=== PATIENT | female | born 1940 | race Caucasian/White ===

== ENCOUNTER 2016-07-01 11:52 | Day surgery (SDC) | payer OTHER ==
[~2016-07-01] VITALS: Ht 149.9 cm; Wt 51.2 kg
[2016-07-01 13:11] VITALS: Ht 149.9 cm; Wt 51.2 kg
[2016-07-01] MEDS ORDERED: [UNRECOGNIZED DRUG - OTHER] (13:11)
[2016-07-01] MEDS ORDERED: MIRALAX (13:11)
[2016-07-01] MEDS ORDERED: [UNRECOGNIZED DRUG - OTHER] (13:11)
--- NOTE | 2016-07-01 14:35 | RADRPT ---
PROCEDURE: XR Chest 1 View. CLINICAL INDICATION: Shortness of breath, heart failure TECHNIQUE: AP view of the chest were obtained. COMPARISON: None. FINDINGS: The heart size is within normal limits. Calcified atherosclerosis is noted in the aorta. Right-side d dual chamber pacemaker has its leads over the heart and appears stable. Lungs are hyperexpanded. No consolidations are identified. No pneumothorax is seen. Osseous structures are osteopenic, but appear grossly intact. IMPRESSION: Calcified atherosclerosis in the aorta. Hyperexpanded, clear lungs. RPTAT: AA .Phil West MD, MD Date Time Electronically viewed and signed by .Phil West MD, MD on 07/01/2016 14:35 .P/
[2016-07-01] MEDS ORDERED: PROPOFOL 20 ML ONE (14:42)
[2016-07-01] MEDS ORDERED: MIDAZOLAM 1 MG/ML 2 ML INJ ONE (14:42)
[2016-07-01] MEDS ORDERED: ESMOLOL 10 ML ONE (14:43)
[2016-07-01] MEDS ORDERED: FENTAnyl 50 MCG/ML VIAL ONE (14:43)
[2016-07-01 14:46] VITALS: BP 176/75; PULSE 103; RESP 16
[2016-07-01 15:50] VITALS: BP 154/67; PULSE 88; RESP 20
--- NOTE | 2016-07-02 10:05 | GILP ---
DATE OF PROCEDURE: 07/01/2016 NAME OF PROCEDURE: Colonoscopy with multiple biopsies and localization tattoo. SURGEON: Rika Mirza MD PREOPERATIVE DIAGNOSIS(ES) POSTOPERATIVE DIAGNOSIS(ES) BRIEF HISTORY AND INDICATIONS: The patient is being reevaluate. Apparently she was evaluated in [facility] and found to have what she and her family described as a large polyp that could not be removed for which surgery was recommended. The patient and her family decided to come back to the [facility] to have this evaluated. No hard copy reports are available. No specifics, size, location of t he so called polyp are available. PREMEDICATION: Monitored anesthesia care by anesthesiologist. INSTRUMENT USED: Olympus colonoscope. PREPARATION: TECHNIQUE: After informed consent, with the patient/relatives understanding the procedure, its indic ations potential risks and complications, including but not limited to: allergic reaction, bleeding, perforation, infection, missed lesions and after all pertinent questions were answered to the patie nt's satisfaction, the patient/relatives signed the witnessed informed consent. Following this, premedication was administered slowly IV push by under careful cardiovascular and re spiratory monitoring with pulse oximetry, automatic blood pressure and sheetmetal trades worker. Once the sedativ e effect was achieved, the patient was placed in the left lateral decubitus position, digital rectal examination was performed. The colonoscope was then introduced and advanced under visual control th roughout all segments of the colon including: the rectum, sigmoid, descending colon, splenic flexure , transverse colon, hepatic flexure, ascending colon and finally reaching the cecum which was clearl y identified by transillumination, finger indentation and the ileocecal valve. Careful examination o f the mucosa of the lower gastrointestinal tract both on insertion as well as withdrawal of the inst rument disclosed the following findings: Rectal Examination: On deep palpation with the index finger, I can feel what appears to be a mass ap proximately 5 to 6 cm from the anal verge. Following this, the Olympus colonoscope was introduced. A very large, more than 6 to 8 cm and almos t circumferential mass was noted, has a clearly malignant appearance, is hard to the touch, and fria ble. The area was bypassed. The remainder of colonic mucosa unremarkable. The ileocecal valve was clearly identified. The instrument was withdrawn. On withdrawal of the instrument, no additional abnormalities were noted. Multiple biopsies were obtained of the mass and localization tattoo was a pplied to the distal margin of the mass which endoscopically is localized at approximately 5 cm. Mo derate-sized internal hemorrhoids are present. The instrument was then withdrawn, the patient tolerated the procedure well and was transferred out of the Endoscopy Suite awake and in good condition to continue recovery under observation. IMPRESSION 1. Large, more than 6 cm semi-circumferential mass, likely malignant in the rectum, distal margin o f approximately 5 cm from the anal verge. Multiple biopsies obtained. Localization tattoo applied to the distal margin. 2. Moderate-sized internal hemorrhoids. PLAN: The patient should be evaluated for surgical and oncological. Radiation therapy prior to jaxon elizabeth appears to be the most advantageous approach. She should also have a CT abdomen and pelvis to assess resectability of this lesion and the possibility of metastatic disease. The patient's family will be informed of the findings. Dictated By: RIKA GONZALEZ Conf#: [id number] DID#: [id number]
--- NOTE | 2016-07-03 09:24 | RADRPT ---
Vent Rate: 95 bpm RR Interval: 0 msec MO Interval: 96 msec QRS Duration: 130 msec QT Interval: 390 msec QTC Interval: 490 msec P-R-T [place]: 97 - -54 - 102 degrees Electronic ventricular pacemaker Electronically Signed By: Todd Rayo [id number]
== END 2016-07-01 16:28 | disposition home or self-care (01) ==
LOC: GIL 11:52
PROVIDERS: ATTEND Internal Medicine Gastroenterology
DX: C20 Malignant neoplasm of rectum (principal); I51.9 Heart disease, unspecified; Z95.0 Presence of cardiac pacemaker
CPT/HCPCS: 45380; 71010; 88305; 93005; J2250; J3010; Z7610

== ENCOUNTER 2016-07-11 10:16 | Inpatient (IN) | payer SELFPAY ==
[~2016-07-11] VITALS: Ht 134.6 cm; Wt 52.0 kg
[~2016-07-11 10:16] MED LIST: MIRALAX; [UNRECOGNIZED DRUG - OTHER]; [UNRECOGNIZED DRUG - OTHER]
[2016-07-11] MEDS ORDERED: SOD CHLORIDE 0.9% 1,000 ML IV STA (12:03)
--- NOTE | 2016-07-11 12:06 | ERA ---
ER Documentation Chief Complaint Date/Time DATE: 07/11/16 TIME: 12:04 Chief Complaint Complains of rectal bleed, and dizziness with hx of Colon CA HPI This is a 76-year-old female with a history of 3 months of bright red blood per rectum. The patient was recently seen and worked up in [place] and was diagnosed with colorectal cancer roughly 2 weeks ago. The patient states that she has had bright red blood per rectum every time she has a bowel movement and for the past 3 days when she stands up bright red blood will come out without stool. She is also complains of feeling dizzy. No syncope no chest pain shortness of breath headache no focal neurological complaints. ROS All systems reviewed and are negative except as per history of present illness. Medications Home Meds Reported Medications Polyethylene Glycol* (Miralax*) 17 Gm Powd.pack, 17 GM PO DAILY, #30 PACKET 07/11/16 Diltiazem Hcl* (Cardizem CD*) 120 Mg Cap.sr.24h, 120 MG PO DAILY, #30 CAP 07/11/16 Discontinued Reported Medications [Ranisen] No Conflict Check 07/01/16 [Angiotrofin] No Conflict Check 07/01/16 [Miralax] No Conflict Check 07/01/16 Allergies Allergies: Coded Allergies: No Known Allergy (Unverified , 07/11/16) PMhx/Soc History of Surgery: Yes (PACER INSERTION) Anesthesia Reaction: No Hx Neurological Disorder: No Hx Respiratory Disorders: No Hx Cardiac Disorders: Yes (HEART DISEASE) Hx Psychiatric Problems: No Hx Miscellaneous Medical Probl: No Hx Alcohol Use: No Hx Substance Use: No Hx Tobacco Use: No FmHx Family History: No coronary disease Physical Exam Vitals Vital Signs Date Time Temp Pulse Resp B/P Pulse Ox O2 Delivery O2 Flow Rate FiO2 07/11/16 16:48 98.1 62 16 132/52 99 Room Air 07/11/16 14:26 97.6 87 18 172/82 100 Room Air 2.0 07/11/16 12:15 96.7 69 16 189/90 100 Nasal Cannula 2.0 07/11/16 10:27 98.3 61 20 156/70 98 Physical Exam Const: Well-developed, well-nourished Head: Atraumatic, normocephalic Eyes: Normal Conjunctiva, PERRLA, EOMI, normal sclera, no nystagmus ENT: Normal External Ears, Nose and Mouth, moist mucus membranes. Neck: Full range of motion. No meningismus, no lymphadenopathy. Resp: Clear to auscultation bilaterally, no wheezing, rhonchi, rales Cardio: Regular rate and rhythm, no murmurs, S1 S2 present Abd: Soft, mild left lower quadrant tenderness, non distended. Normal bowel sounds, no guarding or rebound, no pulsitile abdominal masses or bruits Skin: No petechiae or rashes, no ecchymosis , no maculopapular rash Back: No midline or flank tenderness Ext: No cyanosis, or edema, FROM x 4, normal inspection, neurovascularly intact x 4 Neur: Awake and alert, STR 5/5 x 4, sensation intact x 4, no focal findings, cerebellum intact Psych: Normal Mood and Affect Result Diagram: 07/11/16 1155 07/11/16 1155 Results 24 hrs Laboratory Tests Test 07/11/16 11:55 Activated Partial Thromboplast Time 29.2Sec Alanine Aminotransferase (ALT/SGPT) 15IU/L Albumin 4.2g/dl Albumin/Globulin Ratio 1.07 Alkaline Phosphatase 95IU/L Anion Gap 19 Aspartate Amino Transf (AST/SGOT) 31IU/L Basophils # 0.010^3/ul Basophils % 0.4% Blood Urea Nitrogen 20mg/dl Calcium Level 9.1mg/dl Carbon Dioxide Level 25mmol/L Chloride Level 103mmol/L Creatinine 1.04mg/dl Direct Bilirubin 0.00mg/dl Eosinophils # 0.210^3/ul Eosinophils % 2.6% Globulin 3.90g/dl Glucose Level 135mg/dl Hematocrit 36.6% Hemoglobin 11.7g/dl INR International Normalized Ratio 0.99 Indirect Bilirubin 0.0mg/dl Lymphocytes # 2.010^3/ul Lymphocytes % 28.1% Mean Corpuscular Hemoglobin 27.9pg Mean Corpuscular Hemoglobin Concent 32.0g/dl Mean Corpuscular Volume 87.4fl Mean Platelet Volume 9.7fl Monocytes # 0.510^3/ul Monocytes % 6.9% Neutrophils # 4.310^3/ul Neutrophils % 61.6% Nucleated Red Blood Cells # 0.010^3/ul Nucleated Red Blood Cells % 0.0/100WBC Platelet Count 30516^3/UL Potassium Level 3.8mmol/L Prothrombin Time 13.1Sec Prothrombin Time Ratio 1.0 Red Blood Count 4.1910^6/ul Red Cell Distribution Width 13.4% Sodium Level 143mmol/L Total Bilirubin 0.0mg/dl Total Protein 8.1g/dl White Blood Count 6.910^3/ul Current Medications Medications (Trade) Dose Ordered Sig/Mathew Route PRN Reason Start Time Stop Time Status Last Admin Dose Admin Sodium Chloride (NS) 1,000 ml @ 1,000 mls/hr Q1H STAT IV 07/11/16 12:03 07/11/16 13:02 DC 07/11/16 12:22 IV Flush 10 ml 10 ml STK-MED ONCE .ROUTE 07/11/16 16:01 07/11/16 16:02 DC 07/11/16 16:01 Sodium Chloride (NS) 100 ml @ ud STK-MED ONCE .ROUTE 07/11/16 16:01 07/11/16 16:02 DC 07/11/16 16:01 Iodixanol (Visipaque Locm) 100 ml STK-MED ONCE .ROUTE 07/11/16 16:01 07/11/16 16:02 DC 07/11/16 16:01 Procedures/MDM PROCEDURE: CT of the abdomen and pelvis CLINICAL INDICATION: Abdominal pain. History of recently diagnosed colorectal cancer. Rectal bleeding. TECHNIQUE: The study was performed utilizing a [employer] 64-slice multidetector CT scanner. Direct spiral axial sections were obtained through the abdomen and pelvis with intravenous contrast. After administration of 90 cc of Visipaque 320, postcontrast images were obtained. Coronal and sagittal reformatted images were performed. The CTDI vol is 7.06 mGy and the DLP is 369.95 mGy-cm. The images were reviewed on a PACS workstation. COMPARISON: No prior studies are available for comparison. FINDINGS: CT abdomen: 8 mm nodule in the subpleural margin of the lateral aspect of the right lower lobe is seen with a calcification. A 2 mm calcified granuloma in the right lower lobe is seen. lung bases are clear. The heart is not enlarged. No pleural or pericardial effusion is seen. The liver is normal in size and contour. Focal fat is seen adjacent to the falciform ligament. No focal liver lesions or intrahepatic biliary dilatation is seen. The gallbladder is normal. No common bile duct dilatation is seen. The spleen, pancreas, and adrenal glands are unremarkable in appearance. The kidneys are normal in size and contour enhance normally. No evidence of hydronephrosis or nephrolithiasis is seen. A simple cyst is seen in the mid right kidney measuring approximately 4 cm in size. A small hiatal hernia seen. The stomach is remainder of the unremarkable. The large bowel is stool-filled. Irregular wall thickening in the rectum is seen with luminal narrowing. The small and remainder of the large bowel are otherwise unremarkable in course and caliber. No inflammatory changes in the periappendiceal region is seen. No enlarged lymph nodes or fluid collections are seen. The aorta is normal in caliber . Atherosclerotic vascular disease is seen. CT pelvis: No pelvic mass, adenopathy, or focal fluid collection is seen. There is no free fluid. The urinary bladder is normal. The uterus is absent. No osseous lesions are seen. Degenerative spondylosis of the lumbar spine is seen. IMPRESSION: 1. Irregular bowel wall thickening in the rectum with luminal narrowing which may be consistent with the patients clinical history of a colorectal cancer. Correlation with recent colonoscopy and biopsy may be of value as clinically warranted. 2. Stool filled large bowel. 3. Small hiatal hernia. 4. 8 mm right lower lobe nodule which may represent a calcified granuloma. A calcification. In addition, 2 mm calcified granuloma in the right lower lobe. Recommendations Solid nodules Nodule size: = 4 mm - low risk patients: no follow-up needed - high risk patients: follow-up at 12 months and if no change, no further imaging needed Nodule size: 4-6 mm - low risk patients: follow-up at 12 months and if no change, no further imaging needed - high risk patients: initial follow-up CT at 6-12 months and then at 18-24 months if no change Nodule size: >6-8 mm - low risk patients: initial follow-up CT at 6-12 months and then at 18-24 months if no change - high risk patients: initial follow-up CT at 3-6 months and then at 9-12 and 24 months if no change Nodule size: >8 mm - either low or high risk patients - follow-up CTs at around 3, 9, and 24 months - dynamic contrast enhanced CT, PET, and/or biopsy Note: newly detected indeterminate nodule in persons 35 years of age or older. - low risk patients: minimal or absent history of smoking and or other known risk factors - high risk patients: history of smoking or of other known risk factors (e.g. first degree relative with lung cancer, or exposure to asbestos, radon, uranium) if a nodule up to 8 mm is partly solid or is ground glass further follow up is required after 24 months to exclude possible slow growing adenocarcinoma (EVELIA) RPTAT: HPNM Brandan Pillai Physician Date Time Electronically viewed and signed by Brandan Pillai Physician on 07/11/2016 16 :38 / CC: MARY ANNE MENDOZA DO Patient be admitted to the hospital for rectal bleeding due to rectal cancer. I spoke with Dr. smith off he knows this patient has he scoped her as an outpatient recently. No evidence of severe anemia. Lavagate chemo and radiation first to shrink down the mass before surgery is needed. However did consul general surgery Departure Diagnosis: Primary Impression: Rectal hemorrhage Condition: Stable MARY ANNE MENDOZA DO Jul 11, 2016 12:06
[2016-07-11 12:11] LABS: BASOPHILS % 0.4 % (0.0-2.0); EOSINOPHILS # 0.2 10^3/ul (0.0-0.5); EOSINOPHILS % 2.6 % (0.0-7.0); HEMATOCRIT 36.6 % (37.0-47.0); HEMOGLOBIN 11.7 g/dl (12.0-16.0); LYMPHOCYTES % 28.1 % (15.0-51.0); MEAN CORPUSCULAR HEMOGLOBIN 27.9 pg (29.0-33.0); MEAN CORPUSCULAR VOLUME 87.4 fl (82.0-101.0); MEAN PLATELET VOLUME 9.7 fl (7.4-10.4); MONOCYTE # 0.5 10^3/ul (0.3-0.9); MONOCYTES % 6.9 % (0.0-11.0); NEUTROPHIL # 4.3 10^3/ul (1.6-7.5); NEUTROPHILS % 61.6 % (39.0-77.0); PLATELET COUNT 201 10^3/UL (140-415); RED BLOOD COUNT 4.19 10^6/ul (4.20-5.40); RED CELL DISTRIBUTION WIDTH 13.4 % (11.5-14.5); WHITE BLOOD COUNT 6.9 10^3/ul (4.8-10.8)
[2016-07-11] MEDS ORDERED: DILT120C77 PO (12:55)
[2016-07-11] MEDS ORDERED: POLY17PO6 PO (12:55)
[2016-07-11 13:01] LABS: INR 0.99; PROTIME 13.1 Sec (12.2-14.2)
[2016-07-11 13:02] LABS: PARTIAL THROMBOPLASTIN TIME 29.2 Sec (25.0-35.0)
[2016-07-11 13:29] LABS: ALBUMIN 4.2 g/dl (3.3-4.9); POTASSIUM 3.8 mmol/L (3.5-5.1)
[2016-07-11 13:31] LABS: CREATININE 1.04 mg/dl (0.44-1.00)
[2016-07-11 13:32] LABS: ALBUMIN/GLOBULIN RATIO 1.07; CALCIUM 9.1 mg/dl (8.4-10.2); TOTAL PROTEIN 8.1 g/dl (6.1-8.1)
[2016-07-11] MEDS ORDERED: IODIXANOL LOCM 100 ML BTL ONE (16:01)
[2016-07-11] MEDS ORDERED: SOD CHLORIDE 0.9% 100 ML ONE (16:01)
--- NOTE | 2016-07-11 16:39 | RADRPT ---
PROCEDURE: CT of the abdomen and pelvis CLINICAL INDICATION: Abdominal pain. History of recently diagnosed colorectal cancer. Rectal blee ding. TECHNIQUE: The study was performed utilizing a GE lightspeed 64-slice multidetector CT scanner. Dir ect spiral axial sections were obtained through the abdomen and pelvis with intravenous contrast. Af ter administration of 90 cc of Visipaque 320, postcontrast images were obtained. Coronal and sagitt al reformatted images were performed. The CTDI vol is 7.06 mGy and the DLP is 369.95 mGy-cm. The im ages were reviewed on a PACS workstation. COMPARISON: No prior studies are available for comparison. FINDINGS: CT abdomen: 8 mm nodule in the subpleural margin of the lateral aspect of the right lower lobe is seen with a calcification. A 2 mm calcified granuloma in the right lower lobe is seen. lung bases are clear. The heart is not enlarged. No pleural or pericardial effusion is seen. The liver is normal in size and contour. Focal fat is seen adjacent to the falciform ligament. No fo tyrone liver lesions or intrahepatic biliary dilatation is seen. The gallbladder is normal. No common b ile duct dilatation is seen. The spleen, pancreas, and adrenal glands are unremarkable in appearanc e. The kidneys are normal in size and contour enhance normally. No evidence of hydronephrosis or ne phrolithiasis is seen. A simple cyst is seen in the mid right kidney measuring approximately 4 cm in size. A small hiatal hernia seen. The stomach is remainder of the unremarkable. The large bowel is stool -filled. Irregular wall thickening in the rectum is seen with luminal narrowing. The small and rem ainder of the large bowel are otherwise unremarkable in course and caliber. No inflammatory changes in the periappendiceal region is seen. No enlarged lymph nodes or fluid collections are seen. The a mrakie is normal in caliber . Atherosclerotic vascular disease is seen. CT pelvis: No pelvic mass, adenopathy, or focal fluid collection is seen. There is no free fluid. The urinary bladder is normal. The uterus is absent. No osseous lesions are seen. Degenerative spon dylosis of the lumbar spine is seen. IMPRESSION: 1. Irregular bowel wall thickening in the rectum with luminal narrowing which may be consistent wit h the patients clinical history of a colorectal cancer. Correlation with recent colonoscopy and biop sy may be of value as clinically warranted. 2. Stool filled large bowel. 3. Small hiatal hernia. 4. 8 mm right lower lobe nodule which may represent a calcified granuloma. A calcification. In ad dition, 2 mm calcified granuloma in the right lower lobe. Recommendations Solid nodules Nodule size: = 4 mm - low risk patients: no follow-up needed - high risk patients: follow-up at 12 months and if no change, no further imaging needed Nodule size: 4-6 mm - low risk patients: follow-up at 12 months and if no change, no further imaging needed - high risk patients: initial follow-up CT at 6-12 months and then at 18-24 months if no change Nodule size: >6-8 mm - low risk patients: initial follow-up CT at 6-12 months and then at 18-24 months if no change - high risk patients: initial follow-up CT at 3-6 months and then at 9-12 and 24 months if no change Nodule size: >8 mm - either low or high risk patients - follow-up CTs at around 3, 9, and 24 months - dynamic contrast enhanced CT, PET, and/or biopsy Note: newly detected indeterminate nodule in persons 35 years of age or older. - low risk patients: minimal or absent history of smoking and or other known risk factors - high risk patients: history of smoking or of other known risk factors (e.g. first degree relative with lung cancer, or exposure to asbestos, radon, uranium) if a nodule up to 8 mm is partly solid or is ground glass further follow up is required after 24 mon ths to exclude possible slow growing adenocarcinoma (EVELIA) RPTAT: HPNM Physician Hillary Date Time Electronically viewed and signed by Brandan Pillai Physician on 07/11/2016 16:38 /
[2016-07-11 16:48] VITALS: TEMP 98.1
[2016-07-11] MEDS ORDERED: SOD CHLORIDE 0.9% 1,000 ML IV SCH (18:18)
--- NOTE | 2016-07-11 18:21 | HP ---
Date/Time of Note Date/Time of Note DATE: 07/11/16 TIME: 18:12 Assessment/Plan VTE Prophylaxis VTE Prophylaxis Intervention: contraindicated VTE Contraindication Reason: bleeding Assessment/Plan Assessment/Plan 76 yo female with a past medical history of CAD s/p pacemaker, essential hypertension, who presents with bright red blood per rectum for the last three days. 1. BRBPR - will admit the patient to telemetry, consult Dr. Mirza, Surgery, Hem /onc, radiation/onc for further evaluation, type and cross, serial h/h, monitor acute changes 2. Colorectal CA - newly diagnosed - see #1 - adenocarcinoma - moderately differentiated as per pathology 3. Acute Renal Failure - 2/2 to ATN from blood loss - will monitor acute changes , NPO, IVF 4. Anemia - acute blood loss - could be chronic - will check serial H/H - monitor acute changes 5. CAD s/p pacemaker - consult cardiology for clearance, check echo 6. Essential hypertension - prn hydralazine for sbp > 160 7. GI ppx - protonix gtt 8. DVT ppx - scds answered all of her questions. as per clinical course. this history and physical took greater then 45 minutes to complete HPI/ROS Admit Date/Time Admit Date/Time 07/11/2016, 6:13 pm Hx of Present Illness 76 yo female with a past medical history of CAD s/p pacemaker, essential hypertension, who presents with bright red blood per rectum for the last three days. She has been bleeding at all times, small amounts. When she stands is when she notices the most blood loss. She has been having dizziness, chest pain , shortness of breath, and malaise. Denies any nausea, vomiting, diarrhea, constipation, fevers/chills, loss of consciousness, headaches, urinary irregularities or other constitutional symptoms. Patient had recently gone to [place] 3 months ago where the diagnosis of colorectal cancer was made. She saw Dr. Mirza last week to confirm the diagnosis via colonoscopy. Colonoscopy: IMPRESSION 1. Large, more than 6 cm semi-circumferential mass, likely malignant in the rectum, distal margin of approximately 5 cm from the anal verge. Multiple biopsies obtained. Localization tattoo applied to the distal margin. 2. Moderate-sized internal hemorrhoids. PLAN: The patient should be evaluated for surgical and oncological. Radiation therapy prior to surgery appears to be the most advantageous approach. She should also have a CT abdomen and pelvis to assess resectability of this lesion and the possibility of metastatic disease. The patient's family will be informed of the findings. ROS 14 point review of systems completed, please refer to HPI for any positive findings PMH/Family/Social Past Medical History Medical History: coronary artery disease, hypertension Past Surgical History s/p pacemaker, hysterectomy Family History Significant Family History: hypertension Social History Alcohol Use: none Smoking Status: Never smoker Drug Use: none Exam/Review of Systems Vital Signs Vitals Vital Signs Date Time Temp Pulse Resp B/P Pulse Ox O2 Delivery O2 Flow Rate FiO2 07/11/16 16:48 98.1 62 16 132/52 99 Room Air 07/11/16 14:26 2.0 Exam Exam Gen Ana Luisa: mild distress 2/2 to fatigue, AAOx4 HEENT: NC/AT, PERRLA, EOMI, no pharyngeal erythema, no tonsillar exudates, no lymphadenopathy, no JVD, no carotid bruits NECK: supple, no thyromegaly THORAX: symmetrical, Left upper pacemaker noted CV: S1S2, RRR, II/ systolic murmur best heard over tricuspid area Lungs: CTAB no W/C/R/R Abd: soft, NT/ND, +BS, no rebound, no guarding, neg HSM EXT: trace lower extremity bilateral edema, no ecchymosis, no clubbing, FROM Neuro: CN II-XII grossly intact, no focal deficits Psych: good mentation, alert and oriented, good mood and affect Skin: decreased skin turgor Labs Result Diagram: 07/11/16 1155 07/11/[address] abd/pelvis IMPRESSION: 1. Irregular bowel wall thickening in the rectum with luminal narrowing which may be consistent with the patients clinical history of a colorectal cancer. Correlation with recent colonoscopy and biopsy may be of value as clinically warranted. 2. Stool filled large bowel. 3. Small hiatal hernia. 4. 8 mm right lower lobe nodule which may represent a calcified granuloma. A calcification. In addition, 2 mm calcified granuloma in the right lower lobe. Recommendations Solid nodules Nodule size: = 4 mm - low risk patients: no follow-up needed - high risk patients: follow-up at 12 months and if no change, no further imaging needed Nodule size: 4-6 mm - low risk patients: follow-up at 12 months and if no change, no further imaging needed - high risk patients: initial follow-up CT at 6-12 months and then at 18-24 months if no change Nodule size: >6-8 mm - low risk patients: initial follow-up CT at 6-12 months and then at 18-24 months if no change - high risk patients: initial follow-up CT at 3-6 months and then at 9-12 and 24 months if no change Nodule size: >8 mm - either low or high risk patients - follow-up CTs at around 3, 9, and 24 months - dynamic contrast enhanced CT, PET, and/or biopsy Note: newly detected indeterminate nodule in persons 35 years of age or older. - low risk patients: minimal or absent history of smoking and or other known risk factors - high risk patients: history of smoking or of other known risk factors (e.g. first degree relative with lung cancer, or exposure to asbestos, radon, uranium) if a nodule up to 8 mm is partly solid or is ground glass further follow up is required after 24 months to exclude possible slow growing adenocarcinoma (EVELIA) RYLEY COELLO MD Jul 11, 2016 18:21
[2016-07-11] MEDS ORDERED: ONDANSETRON 4 MG INJ IV PRN ×2 (18:30)
[2016-07-11] MEDS ORDERED: ACETAMINOPHEN 325 MG TAB PO PRN (18:30)
[2016-07-11] MEDS ORDERED: NACL 0.9% 3 ML SYG IV SCH (18:30)
[2016-07-11] MEDS ORDERED: NITROGLYCERIN (SL) 0.4 MG TAB SL PRN (18:30)
[2016-07-11] MEDS ORDERED: LORAZEPAM 2 MG INJ IV PRN (18:30)
[2016-07-11] MEDS ORDERED: hydrALAzine 20 MG INJ IV PRN (18:30)
[2016-07-11] MEDS ORDERED: morphine 2 MG INJ IV PRN (18:30)
--- NOTE | 2016-07-11 18:34 | CONS ---
Date/Time of Note Date/Time of Note DATE: 07/11/16 TIME: 18:30 Assessment/Plan Assessment/Plan Additional Assessment/Plan Lightheadedness History of pacemaker Acute blood loss anemia Colorectal cancer with GI bleeding -Patient with symptoms of fatigue, lightheadedness with standing and shortness of breath progressing over the past 2 weeks as her rectal bleeding has worsened. Prior to her GI bleeding issues, she denied symptoms of exertional shortness of breath or dizziness. She did have a pacemaker placed in 2013 in [place] secondary to bradycardia. Etiology of her symptoms is most likely secondary to her GI bleed. She is undergoing GI evaluation. Would obtain echocardiogram to evaluate LV function. Transfuse as necessary as per the primary team. Blood pressure initially was elevated but currently has improved. Would hold any antiplatelet therapies. Consultation Date/Type/Reason Admit Date/Time 07/11/2016, 6:13 pm Type of Consultation: cv Reason for Consultation Lightheadedness and history of pacemaker Hx of Present Illness This is a 76-year-old female with recent diagnosis of colorectal cancer who presents with rectal bleeding and lightheadedness. Patient undergoing evaluation for possible surgical intervention. Patient with more frequent bleeding especially with movements. Patient over the past week developed symptoms of lightheadedness with standing up. Symptoms usually improve after a few seconds. With exertion she complains of fatigue and shortness of breath progressing over the past few weeks. She does admit to increased blood loss per rectum. She denies any exertional chest pain. She denies any fevers or chills. Prior to this episode of bleeding, she denied exertional shortness of breath. She does have a history of a pacemaker placed in [place] in 2013 secondary to bradycardia. 12 point review of symptoms was performed with all pertinent positives and negatives mentioned above and all else is negative Past Medical History Bradycardia status post pacemaker Colorectal cancer Medical History: hypertension Past Surgical History Past Surgical Hx: other (Pacemaker, hysterectomy) Family History Significant Family History: no pertinent family hx Social History Alcohol Use: none Smoking Status: Never smoker Drug Use: none Exam/Review of Systems Vital Signs Vitals Vital Signs Date Time Temp Pulse Resp B/P Pulse Ox O2 Delivery O2 Flow Rate FiO2 07/11/16 16:48 98.1 62 16 132/52 99 Room Air 07/11/16 14:26 2.0 Exam No apparent distress Constitutional: alert, frail, oriented Head: normocephalic Neck: supple Respiratory: clear to auscultation, normal air movement Cardiovascular: other (S1-S2 heard), regular rate and rhythm Gastrointestinal: bowel sounds, non-tender, other (No guarding), soft Extremities: other (No edema) Results Result Diagram: 07/11/16 1155 07/11/16 1155 Results 24 hrs Laboratory Tests Test 07/11/16 11:55 Activated Partial Thromboplast Time 29.2 Alanine Aminotransferase (ALT/SGPT) 15 Albumin 4.2 Albumin/Globulin Ratio 1.07 Alkaline Phosphatase 95 Anion Gap 19 H Aspartate Amino Transf (AST/SGOT) 31 Basophils # 0.0 Basophils % 0.4 Blood Urea Nitrogen 20 Calcium Level 9.1 Carbon Dioxide Level 25 Chloride Level 103 Creatinine 1.04 H Direct Bilirubin 0.00 Eosinophils # 0.2 Eosinophils % 2.6 Globulin 3.90 H Glucose Level 135 Hematocrit 36.6 L Hemoglobin 11.7 L INR International Normalized Ratio 0.99 Indirect Bilirubin 0.0 Lymphocytes # 2.0 Lymphocytes % 28.1 Mean Corpuscular Hemoglobin 27.9 L Mean Corpuscular Hemoglobin Concent 32.0 Mean Corpuscular Volume 87.4 Mean Platelet Volume 9.7 Monocytes # 0.5 Monocytes % 6.9 Neutrophils # 4.3 Neutrophils % 61.6 Nucleated Red Blood Cells # 0.0 Nucleated Red Blood Cells % 0.0 Platelet Count 201 Potassium Level 3.8 Prothrombin Time 13.1 Prothrombin Time Ratio 1.0 Red Blood Count 4.19 L Red Cell Distribution Width 13.4 Sodium Level 143 Total Bilirubin 0.0 L Total Protein 8.1 White Blood Count 6.9 Medications Medications Current Medications Sodium Chloride 1,000 ml @ 80 mls/hr [id number] IV ; Start 07/11/16 at 18:18; Stop 07/12/16 at 06:47 Sodium Chloride (NS) 1,000 ml @ 75 mls/hr [id number] IV ; Start 07/11/16 at 18:21; Status UNV Lorazepam (Ativan) 0.5 mg Q6H PRN IV ANXIETY; Start 07/11/16 at 18:30; Status UNV Ondansetron HCl (Zofran Inj) 4 mg Q6H PRN IV NAUSEA AND/OR VOMITING; Start 07/11 at 18:30; Status UNV Nitroglycerin (Nitroglycerin (Sl Tab) 0.4 Mg) 1 tab Q5M PRN SL CHEST PAIN; Start 07/11/16 at 18:30; Status UNV Morphine Sulfate (morphine) 2 mg Q4H PRN IV PAIN LEVEL 7-10; Start 07/11/16 at 18:30; Status UNV Hydralazine HCl (Apresoline) 10 mg Q6H PRN IV sbp > 160; Start 07/11/16 at 18:30 ; Status UNV Rachid Castellon DO Jul 11, 2016 18:34
[2016-07-11 20:45] LABS: HEMATOCRIT 30.9 % (37.0-47.0); HEMOGLOBIN 10.3 g/dl (12.0-16.0)
[2016-07-11 20:47] LABS: CREATINE KINASE 29 IU/L (23-200)
[2016-07-11 20:48] LABS: CHOL/HDL RATIO 4.7 RATIO; MAGNESIUM 1.9 mg/dl (1.7-2.5)
[2016-07-11 20:56] LABS: CK-MB 0.47 ng/ml (0.0-2.4)
[2016-07-11 21:00] VITALS: BP 198/80; RESP 20
[2016-07-11 21:01] LABS: TROPONIN-I < 0.012 ng/ml (0.00-0.12)
[2016-07-11 21:25] VITALS: BP 157/68; PULSE 65
[2016-07-11 21:30] VITALS: Ht 134.6 cm; Wt 52.0 kg
[2016-07-11] MEDS: SOD CHLORIDE 0.9% 1,000 ML IV SCH (21:51)
[2016-07-11 21:53] LABS: THYROID STIMULATING HORMONE 3.56 MIU/L (0.465-4.680)
[2016-07-11 22:00] VITALS: BP 198/80; RESP 20
[2016-07-12 01:22] LABS: HEMATOCRIT 29.9 % (37.0-47.0); HEMOGLOBIN 9.7 g/dl (12.0-16.0)
[2016-07-12 01:30] VITALS: BP 146/66; RESP 18
[2016-07-12 06:18] LABS: ADD SCAN DIFF NO
[2016-07-12 07:03] LABS: POTASSIUM 4.4 mmol/L (3.5-5.1)
[2016-07-12 07:06] LABS: CREATININE 0.96 mg/dl (0.44-1.00)
[2016-07-12 07:07] LABS: CALCIUM 8.6 mg/dl (8.4-10.2)
[2016-07-12 07:31] VITALS: BP 140/64; RESP 16
[2016-07-12] MEDS: SOD CHLORIDE 0.9% 1,000 ML IV SCH ×2 (07:41→11:11)
[2016-07-12 09:31] LABS: BASOPHILS % 0.8 % (0.0-2.0); EOSINOPHILS # 0.3 10^3/ul (0.0-0.5); EOSINOPHILS % 5.3 % (0.0-7.0); HEMATOCRIT 30.7 % (37.0-47.0); HEMOGLOBIN 9.9 g/dl (12.0-16.0); LYMPHOCYTES # 1.7 10^3/ul (0.8-2.9); LYMPHOCYTES % 31.6 % (15.0-51.0); MEAN CORPUSCULAR HEMOGLOBIN 28.6 pg (29.0-33.0); MEAN CORPUSCULAR HGB CONC 32.2 g/dl (32.0-37.0); MEAN CORPUSCULAR VOLUME 88.7 fl (82.0-101.0); MEAN PLATELET VOLUME 10.2 fl (7.4-10.4); MONOCYTE # 0.4 10^3/ul (0.3-0.9); MONOCYTES % 8.1 % (0.0-11.0); NEUTROPHIL # 2.9 10^3/ul (1.6-7.5); PLATELET COUNT 164 10^3/UL (140-415); RED BLOOD COUNT 3.46 10^6/ul (4.20-5.40); RED CELL DISTRIBUTION WIDTH 13.6 % (11.5-14.5); WHITE BLOOD COUNT 5.3 10^3/ul (4.8-10.8)
--- NOTE | 2016-07-12 09:47 | PN ---
Date/Time of Note Date/Time of Note DATE: 07/12/16 TIME: 09:40 Assessment/Plan VTE Prophylaxis VTE Prophylaxis Intervention: contraindicated VTE Contraindication Reason: bleeding Lines/Catheters IV Catheter Type (from Nrs): Peripheral IV Assessment/Plan Assessment/Plan 76 yo female with a past medical history of CAD s/p pacemaker, essential hypertension, who presents with bright red blood per rectum for the last three days. 1. BRBPR - still with active bleeding - GI consult appreciated - monitor acute changes 2. Colorectal CA - newly diagnosed - see #1 - adenocarcinoma - moderately differentiated as per pathology, f/u recs - surgery/hem/onc/Radiation onc 3. Acute Renal Failure - 2/2 to ATN from blood loss - will monitor acute changes , NPO, IVF - improved 4. Anemia - acute blood loss - could be chronic - will check serial H/H - monitor acute changes - stabilizing 5. CAD s/p pacemaker - consult cardiology for clearance, check echo 6. Essential hypertension - prn hydralazine for sbp > 160 7. GI ppx - protonix gtt 8. DVT ppx - scds dispo - f/u recs, monitor acute changes, as per clinical course this progress note took greater than 40 minutes to complete Subjective 24 Hr Interval Summary Free Text/Dictation Patient was admitted for BRBPR. She is still having bloody bowel movements. The patient does not know the diagnosis. The daughter is the DPOA now. Spoke to her about the care plan. 20 minutes spent. Exam/Review of Systems Vital Signs Vitals Vital Signs Date Time Temp Pulse Resp B/P Pulse Ox O2 Delivery O2 Flow Rate FiO2 07/12/16 07:31 98.0 63 16 140/64 99 07/11/16 18:42 Room Air 07/11/16 14:26 2.0 Intake and Output 07/11/16 07/11/16 07/12/16 15:00 23:00 07:00 Intake Total 1000 ml 535 ml Output Total 210 ml 400 ml Balance 790 ml 135 ml Exam Gen Ana Luisa: mild distress 2/2 to fatigue, AAOx4 HEENT: NC/AT, PERRLA, EOMI, no pharyngeal erythema, no tonsillar exudates, no lymphadenopathy, no JVD, no carotid bruits NECK: supple, no thyromegaly THORAX: symmetrical, Left upper pacemaker noted CV: S1S2, RRR, II/ systolic murmur best heard over tricuspid area Lungs: CTAB no W/C/R/R Abd: soft, NT/ND, +BS, no rebound, no guarding, neg HSM EXT: trace lower extremity bilateral edema, no ecchymosis, no clubbing, FROM Neuro: CN II-XII grossly intact, no focal deficits Psych: good mentation, alert and oriented, good mood and affect Skin: decreased skin turgor Results Result Diagram: 07/12/1651407/12/1615 Results 24 hrs Laboratory Tests Test 07/11/16 11:55 07/11/16 19:10 07/12/16 00:55 07/12/16 05:15 Activated Partial Thromboplast Time 29.2 Alanine Aminotransferase (ALT/SGPT) 15 Albumin 4.2 Albumin/Globulin Ratio 1.07 Alkaline Phosphatase 95 Anion Gap 19 H 14 Aspartate Amino Transf (AST/SGOT) 31 Basophils # 0.0 0.0 Basophils % 0.4 0.8 Blood Urea Nitrogen 20 15 Calcium Level 9.1 8.6 Carbon Dioxide Level 25 25 Chloride Level 103 109 Creatinine 1.04 H 0.96 Direct Bilirubin 0.00 Eosinophils # 0.2 0.3 Eosinophils % 2.6 5.3 Globulin 3.90 H Glucose Level 135 87 # Hematocrit 36.6 L 30.9 L 29.9 L 30.7 L Hemoglobin 11.7 L 10.3 L 9.7 L 9.9 L INR International Normalized Ratio 0.99 Indirect Bilirubin 0.0 Lymphocytes # 2.0 1.7 Lymphocytes % 28.1 31.6 Mean Corpuscular Hemoglobin 27.9 L 28.6 L Mean Corpuscular Hemoglobin Concent 32.0 32.2 Mean Corpuscular Volume 87.4 88.7 Mean Platelet Volume 9.7 10.2 Monocytes # 0.5 0.4 Monocytes % 6.9 8.1 Neutrophils # 4.3 2.9 Neutrophils % 61.6 54.0 Nucleated Red Blood Cells # 0.0 0.0 Nucleated Red Blood Cells % 0.0 0.0 Platelet Count 201 164 Potassium Level 3.8 4.4 Prothrombin Time 13.1 Prothrombin Time Ratio 1.0 Red Blood Count 4.19 L 3.46 L Red Cell Distribution Width 13.4 13.6 Sodium Level 143 144 Total Bilirubin 0.0 L Total Protein 8.1 White Blood Count 6.9 5.3 # Cholesterol Level 141 Cholesterol/HDL Ratio 4.7 Creatine Kinase 29 Creatine Kinase Index 1.6 Creatinine Kinase MB (Mass) 0.47 HDL Cholesterol 30 L Hemoglobin A1c 6.3 H LDL Cholesterol, Calculated 83 Magnesium Level 1.9 Thyroid Stimulating Hormone (TSH) 3.560 Triglycerides Level 142 Troponin I < 0.012 Medications Medications Current Medications Sodium Chloride (NS) 1,000 ml @ 75 mls/hr [id number] IV Last administered on t 21:51; Admin Dose 75 MLS/HR; Start 07/11/16 at 18:21 Lorazepam (Ativan) 0.5 mg Q6H PRN IV ANXIETY; Start 07/11/16 at 18:30 Ondansetron HCl (Zofran Inj) 4 mg Q6H PRN IV NAUSEA AND/OR VOMITING; Start 07/11 at 18:30 Nitroglycerin (Nitroglycerin (Sl Tab) 0.4 Mg) 1 tab Q5M PRN SL CHEST PAIN; Start 07/11/16 at 18:30 Morphine Sulfate (morphine) 2 mg Q4H PRN IV PAIN LEVEL 7-10; Start 07/11/16 at 18:30 Hydralazine HCl (Apresoline) 10 mg Q6H PRN IV sbp > 160; Start 07/11/16 at 18:30 RYLEY COELLO MD Jul 12, 2016 09:47
--- NOTE | 2016-07-12 09:49 | CONS ---
Date/Time of Note Date/Time of Note DATE: 07/12/16 TIME: 09:19 Assessment/Plan Assessment/Plan Additional Assessment/Plan Anemia * Monitor H&H Q 6hrs * Transfuse 2 units for Hgb <7.5 Rectal Bleeding * Colonoscopy 07-01-16: 1. Large, more than 6 cm semi-circumferential mass, likely malignant in the rectum, distal margin of approximately 5 cm from the anal verge. Localization tattoo applied to the distal margin. 2. Moderate- sized internal hemorrhoids. 3. Biopsies: Adenocarcinoma, moderately- differentiated. * Recommend that the patient should be evaluated for surgical and oncological. Radiation therapy prior to surgery appears to be the most advantageous approach. * CT Abdomen: 1. Irregular bowel wall thickening in the rectum with luminal narrowing which may be consistent with the patients clinical history of a colorectal cancer 2. 8 mm right lower lobe nodule which may represent a calcified granuloma. A calcification. In addition, 2 mm calcified granuloma in the right lower lobe. * Defer repeat colonoscopy unless clinically indicated Coronary Artery Disease S/P Pacemaker placement * Cardiology following Further recommendations depend on clinical course Consultation Date/Type/Reason Admit Date/Time 07/11/2016, 6:13 pm Type of Consultation: GI Reason for Consultation Rectal bleeding Hx of Present Illness 76 YO F with PMH of coronary artery disease status post pacemaker placement, hypertension, and colorectal mass secondary to colorectal cancer presented to the ED with reports of nonstop rectal bleeding. Patient's daughter reports nonstop rectal bleeding for the last 4 days. Patient denies worst bleeding with bowel movements. In addition to rectal bleed, patient presented with lethargy and weakness. Patient denies abdominal pain, nausea, vomiting, and diarrhea. Patient denies any OTC treatments for symptoms. At bedside patient more awake and alert. Repeat colonoscopy currently not recommended. Past Medical History Medical History: coronary artery disease (s/p pacemaker), hypertension Past Surgical History Past Surgical Hx: other (Pacemaker, hysterectomy) Social History Alcohol Use: none Smoking Status: Never smoker Drug Use: none Exam/Review of Systems Vital Signs Vitals Vital Signs Date Time Temp Pulse Resp B/P Pulse Ox O2 Delivery O2 Flow Rate FiO2 07/12/16 07:31 98.0 63 16 140/64 99 07/11/16 18:42 Room Air 07/11/16 14:26 2.0 Intake and Output 07/11/16 07/11/16 07/12/16 15:00 23:00 07:00 Intake Total 1000 ml 535 ml Output Total 210 ml 400 ml Balance 790 ml 135 ml Exam Constitutional: alert, oriented, other (thin) Psych: nl mood/affect Head: atraumatic Eyes: EOMI, nl conjunctiva, nl lids, nl sclera ENMT: nl external ears & nose, nl lips & teeth, nl nasal mucosa & septum Respiratory: normal air movement Cardiovascular: regular rate and rhythm Gastrointestinal: non-tender, soft Musculoskeletal: nl extremities to inspection Neurological: PAY PER CLICK STRATEGIST II-XII intact Results Result Diagram: 07/12/16 0055 07/12/16 0515 Results 24 hrs Laboratory Tests Test 07/11/16 11:55 07/11/16 19:10 07/12/16 00:55 07/12/16 05:15 Activated Partial Thromboplast Time 29.2 Alanine Aminotransferase (ALT/SGPT) 15 Albumin 4.2 Albumin/Globulin Ratio 1.07 Alkaline Phosphatase 95 Anion Gap 19 H 14 Aspartate Amino Transf (AST/SGOT) 31 Basophils # 0.0 Basophils % 0.4 Blood Urea Nitrogen 20 15 Calcium Level 9.1 8.6 Carbon Dioxide Level 25 25 Chloride Level 103 109 Creatinine 1.04 H 0.96 Direct Bilirubin 0.00 Eosinophils # 0.2 Eosinophils % 2.6 Globulin 3.90 H Glucose Level 135 87 # Hematocrit 36.6 L 30.9 L 29.9 L Hemoglobin 11.7 L 10.3 L 9.7 L INR International Normalized Ratio 0.99 Indirect Bilirubin 0.0 Lymphocytes # 2.0 Lymphocytes % 28.1 Mean Corpuscular Hemoglobin 27.9 L Mean Corpuscular Hemoglobin Concent 32.0 Mean Corpuscular Volume 87.4 Mean Platelet Volume 9.7 Monocytes # 0.5 Monocytes % 6.9 Neutrophils # 4.3 Neutrophils % 61.6 Nucleated Red Blood Cells # 0.0 Nucleated Red Blood Cells % 0.0 Platelet Count 201 Potassium Level 3.8 4.4 Prothrombin Time 13.1 Prothrombin Time Ratio 1.0 Red Blood Count 4.19 L Red Cell Distribution Width 13.4 Sodium Level 143 144 Total Bilirubin 0.0 L Total Protein 8.1 White Blood Count 6.9 Cholesterol Level 141 Cholesterol/HDL Ratio 4.7 Creatine Kinase 29 Creatine Kinase Index 1.6 Creatinine Kinase MB (Mass) 0.47 HDL Cholesterol 30 L Hemoglobin A1c 6.3 H LDL Cholesterol, Calculated 83 Magnesium Level 1.9 Thyroid Stimulating Hormone (TSH) 3.560 Triglycerides Level 142 Troponin I < 0.012 Medications Medications Current Medications Sodium Chloride (NS) 1,000 ml @ 75 mls/hr [id number] IV Last administered on 21:51; Admin Dose 75 MLS/HR; Start 07/11/16 at 18:21 Lorazepam (Ativan) 0.5 mg Q6H PRN IV ANXIETY; Start 07/11/16 at 18:30 Ondansetron HCl (Zofran Inj) 4 mg Q6H PRN IV NAUSEA AND/OR VOMITING; Start 07/11 at 18:30 Nitroglycerin (Nitroglycerin (Sl Tab) 0.4 Mg) 1 tab Q5M PRN SL CHEST PAIN; Start 07/11/16 at 18:30 Morphine Sulfate (morphine) 2 mg Q4H PRN IV PAIN LEVEL 7-10; Start 07/11/16 at 18:30 Hydralazine HCl (Apresoline) 10 mg Q6H PRN IV sbp > 160; Start 07/11/16 at 18:30 LALA NIXON MD Jul 12, 2016 09:30
--- NOTE | 2016-07-12 10:44 | CONS ---
[facility] INITIAL INPATIENT CONSULTATION NOTE PLACE OF SERVICE: [facility] 4th floor. DATE OF CONSULTATION: 07/12/2016 ASSESSMENT AND PLAN: A very pleasant but unfortunate 76-year-old lady with comorbid issues including BMI 28.7 as well as coronary artery disease with bradycardia that required pacemaker placement who has had a known rectal mass for at least 3 to 4 months, starting in [place] and then confirmed with our colonoscopy in June where it appears to be a stage I or stage II rectal cancer without obvious metastatic disease. The patient is clinically and hemodynamically stable and for this reason, I would recommend following NCCN- guided treatment with chemoradiation followed by surgery. The radiation therapy would certainly stop the bleeding promptly and has been shown to be associated with higher survival in patients who undergo this regimen. The patient's family had expressed their wishes not to divulge all the information to the patient. During this initial visit, I elected to not go through all my recommendations with the patient and family and have a discussion in a multidisciplinary fashion with gastroenterology as well as other physicians. The patient should be counseled regarding her diagnosis and consultations from radiation oncology and oncology should be obtained. No indication for acute surgical intervention. I explained parts of this to the patient and family and answered all their questions to the best of my ability. With above assessment, I recommend the followin. Keep in house. 2. Treat symptoms. 3. Radiation oncology consultation. 4. Medical oncology consultation. 5. I recommend chemoradiation followed by surgery. 6. Multidisciplinary Tumor Board presentation. Thank you again for allowing us to participate in the care of this very pleasant lady and her wonderful family. If there are any questions, please feel free to call me at [phone]. TOTAL VISIT TIME: 45 minutes of which more than half was spent in [id number] discussion with the patient, discussions with her daughter, as well as coordination of care between multiple physicians and providers. UPDATED CLINICAL SUMMARY: A very pleasant 76-year-old lady with comorbid issues including coronary artery disease with a pacemaker, essential hypertension and a recently discovered rectal mass who was admitted to [facility] through the emergency room on 07/12/2016 for anemia. COMORBIDITIES: 1. Known recent discovery of a larger than 6 cm circumferential mass lump, likely malignant in the rectum with distal margin approximately 5 cm from the anal verge that was discovered on colonoscopy on 07/02/2016 with pathology showing adenocarcinoma, moderately differentiated. 2. History of coronary artery disease with bradycardia that required pacemaker placement done in [place] in 2013. 3. Hypertension. 4. Anemia. 5. Acute renal failure. 6. BMI 28.7. DATE OF ADMISSION: 07/11/2016 HISTORY OF PRESENT ILLNESS: The patient is a very pleasant 76-year-old lady with the above-mentioned comorbidities whom I was kindly asked to consult regarding management of her rectal mass which unfortunately has come back as adenocarcinoma. The patient herself was admitted because of failure to thrive and anemia. She has been having on and off bleeding from her rectum with bowel movements. Slight change in appetite and a slight decrease in weight, but not too a great extent. No abdominal pain and no nausea or vomiting. No other major complaints. ALLERGIES: NO KNOWN DRUG ALLERGIES. MEDICATIONS: Cardizem and MiraLax. SOCIAL HISTORY: The patient lives with her family. No major smoking, drinking , or any intravenous drug use reported. FAMILY HISTORY: No major medical, surgical or oncologic problems reported in the family. REVIEW OF SYSTEMS: Other than the above-mentioned, there are no other pertinent positives or pertinent negatives in a complete 14-point review of systems. PHYSICAL EXAMINATION: GENERAL: The patient appears to be a very pleasant lady of descent, appearing stated age, lying in bed comfortably and in no acute distress. BMI is 28.7. VITAL SIGNS: Her temperature is 98.0, blood pressure is 140/64. Pulse 63. Respiratory rate 16. Pulse oximetry 99% on room air. HEENT: Normocephalic and atraumatic. Extraocular muscles and hearing are grossly intact bilaterally and symmetrically. Sclerae are nonicteric. Oral cavity is clear; oral mucosa appeared to be pink and moist. Dentition: poor with upper and lower dentures. NECK: Supple. There is no lymphadenopathy or JVD. There is no submental, submandibular or supraclavicular lymphadenopathy. CHEST: Rises symmetrically with each breath; patient is breathing comfortably. There are no audible wheezes, rales or rhonchi on the gross exam. HEART: Pulse is regular and palpable on the right wrist. Capillary refill was normal. Carotid pulses are palpable bilaterally and symmetrically in the neck. EXTREMITIES: Lower extremities contain no pitting edema around the ankles bilaterally and symmetrically. ABDOMEN: Abdomen is soft, nontender and nondistended. There are no peritoneal signs or guarding. No evidence of ascites, organomegaly, caput medusae, engorged subcutaneous veins, or other abnormalities. SKIN: Appears to be pink and feels warm to touch. NEUROLOGIC: Awake, alert, and follows commands appropriately. LABORATORY DATA: White blood cell count 6.9, hemoglobin 11.7 on admission and 9.7 with hydration. Platelet count 201. Electrolytes were normal. Creatinine on admission was 1.04. Hemoglobin A1c 6.3. Liver function and injury parameters were normal. Albumin 4.2 prior to hydration. INR 0.99. IMAGING: An abdominal and pelvic CT 07/11/2016 showed irregular bowel wall thickening in the rectum with luminal narrowing which may be consistent with the patient's clinical history of colorectal cancer. Small hiatal hernia was noted. An 8 mm right lower lobe nodule which may represent a calcified granuloma was noted. Additional 2 mm calcified granuloma in the right lower lobe was also noted. Dictated By: RAFIQ ARGUELLES/MANOLO Conf#: [id number] DID#: [id number] MTDD
[2016-07-12 11:21] LABS: CANCER ANTIGEN 125 6.2 U/ml (0.0-35.0)
[2016-07-12 11:22] LABS: CARCINOEMBRYONIC ANTIGEN 5.2 ng/ml (0.0-5.0)
[2016-07-12 12:27] LABS: CANCER ANTIGEN 19-9 < 1.4 U/ml (0.0-37.0)
--- NOTE | 2016-07-12 12:30 | RADRPT ---
Echocardiogram Report Patient Name: SAVAGE DODGE Gender: Female Date: 1940 Study Date: 12-Jul-2016 Coding Machine Operator: Timothy Hodges [facility] Location: 621 Ref. Physician: RYLEY COELLO Quality: Technically Difficult Study Procedures: Transthoracic echocardiogram with complete 2D, M-Mode, and doppler examination. Indications: Evaluate Left Ventricular function. 2D/M Mode Doppler Measurement Value Normal Ranges Measurement Value Normal Ranges LVIDd 2D 4.0 3.5 - 5.6 cm AV Peak Will 1.3 m/sec LVIDs 2D 2.5 2.1 - 4.1 cm AV Peak PG 6.6 mmHg LVPWd 2D 0.9 0.6 - 1.1 cm LVOT Peak Will 1.2 m/sec IVSd 2D 1.0 0.6 - 1.1 cm LVOT Peak PG 5.9 mmHg AoR Diam 2D 2.7 2.0 - 3.7 cm MV E Peak Will 0.7 m/sec EDV 2D 70.7 cm3 MV A Peak Will 1.0 m/sec ESV 2D 14.9 cm3 MV E/A 0.7 LA Dimen 2D 3.7 2.3 - 4.0 cm MV Decel Time 194 msec MV Decel [place] 4 MV E/A 0.7 TR Peak Will 3.0 m/sec TR Peak PG 37.0 mmHg RVSP 40.0 mmHg Findings Left Ventricle: Normal left ventricular systolic function. Normal left ventricular cavity size. Normal left ventricular wall thickness. Ejection fraction is visually estimated at 65 %. Tissue Doppler/Mitral Doppler indices are consistent with impaired relaxation (Stage I diastolic dysfunction). Right Ventricle: Normal right ventricular systolic function. Pacemaker right heart. Left Atrium: The left atrium is normal in size. Right Atrium: The right atrium is normal in size. Mitral Valve: Normal appearance and function of the mitral valve with trace physiologic regurgitation. Aortic Valve: No hemodynamically significant aortic stenosis by doppler. Aortic cusps appear mildly calcified. Mild aortic valve regurgitation. Tricuspid Valve: Normal appearance of the tricuspid valve. Estimated peak PA systolic pressure 40 mmHg. There is mild tricuspid regurgitation. Pulmonic Valve: Normal pulmonic valve appearance. There is mild pulmonic regurgitation. Pericardium: Normal pericardium with no significant pericardial effusion. Aorta: Normal aortic root. IVC: Normal size and normal respiratory collapse consistent with normal right atrial pressure. Conclusions 1.Normal left ventricular systolic function. Normal left ventricular cavity size. Normal left ventricular wall thickness. Ejection fraction is visually estimated at 65 %. Tissue Doppler/Mitral Doppler indices are consistent with impaired relaxation (Stage I diastolic dysfunction). 2.Normal right ventricular systolic function. Pacemaker right heart. 3.The left atrium is normal in size. 4.The right atrium is normal in size. 5.No hemodynamically significant aortic stenosis by doppler. Mild aortic valve regurgitation. 6.Estimated peak PA systolic pressure 40 mmHg. There is mild tricuspid regurgitation. 7.Normal appearance and function of the mitral valve with trace physiologic regurgitation. 8.Normal pericardium with no significant pericardial effusion. Electronically Signed By: Rachid Castellon 12-Jul-2016 12:28:51 -0800 Patient Name: SAVAGE DODGE Study Date: 12-Jul-2016 [id number]
[2016-07-12 14:16] LABS: HEMATOCRIT 28.9 % (37.0-47.0); HEMOGLOBIN 9.6 g/dl (12.0-16.0)
--- NOTE | 2016-07-12 14:21 | CONS ---
Date/Time of Note Date/Time of Note DATE: 07/12/16 TIME: 14:18 Assessment/Plan Assessment/Plan Additional Assessment/Plan Lightheadedness Preserved ejection fraction History of pacemaker Acute blood loss anemia Colorectal cancer with GI bleeding -Patient with improvement in symptoms without lightheadedness or dizziness today. Shortness of breath is slightly better. Echocardiogram reviewed with preserved ejection fraction with no significant valvular abnormalities. Patient undergoing GI/surgery/oncology workup. Consultation Date/Type/Reason Admit Date/Time Jul 11, 2016 at 18:18 Initial Consult Date Type of Consultation: cv 24 HR Interval Summary Free Text/Dictation Denies shortness of breath, lightheadedness has improved. Denies chest pain Exam/Review of Systems Vital Signs Vitals Vital Signs Date Time Temp Pulse Resp B/P Pulse Ox O2 Delivery O2 Flow Rate FiO2 07/12/16 07:31 98.0 63 16 140/64 99 07/11/16 18:42 Room Air 07/11/16 14:26 2.0 Intake and Output 07/11/16 07/11/16 07/12/16 15:00 23:00 07:00 Intake Total 1000 ml 535 ml Output Total 210 ml 400 ml Balance 790 ml 135 ml Exam Family at bedside Constitutional: alert, frail, oriented Head: normocephalic Neck: supple Respiratory: other (Coarse breath sounds bilaterally, no wheezing) Cardiovascular: other (S1-S2 heard), regular rate and rhythm Gastrointestinal: bowel sounds, non-tender, soft Extremities: other (No edema) Results Result Diagram: 07/12/16 1345 07/12/16 0515 Results 24 hrs Laboratory Tests Test 07/11/16 19:10 07/12/16 00:55 07/12/16 05:15 07/12/16 13:45 Cholesterol Level 141 Cholesterol/HDL Ratio 4.7 Creatine Kinase 29 Creatine Kinase Index 1.6 Creatinine Kinase MB (Mass) 0.47 HDL Cholesterol 30 L Hematocrit 30.9 L 29.9 L 30.7 L 28.9 L Hemoglobin 10.3 L 9.7 L 9.9 L 9.6 L Hemoglobin A1c 6.3 H LDL Cholesterol, Calculated 83 Magnesium Level 1.9 Thyroid Stimulating Hormone (TSH) 3.560 Triglycerides Level 142 Troponin I < 0.012 Alpha Fetoprotein 2.79 Anion Gap 14 Basophils # 0.0 Basophils % 0.8 Blood Urea Nitrogen 15 CA 125 Antigen 6.2 CA 19-9 Antigen < 1.4 Calcium Level 8.6 Carbon Dioxide Level 25 Carcinoembryonic Antigen 5.2 H Chloride Level 109 Creatinine 0.96 Eosinophils # 0.3 Eosinophils % 5.3 Glucose Level 87 # Lymphocytes # 1.7 Lymphocytes % 31.6 Mean Corpuscular Hemoglobin 28.6 L Mean Corpuscular Hemoglobin Concent 32.2 Mean Corpuscular Volume 88.7 Mean Platelet Volume 10.2 Monocytes # 0.4 Monocytes % 8.1 Neutrophils # 2.9 Neutrophils % 54.0 Nucleated Red Blood Cells # 0.0 Nucleated Red Blood Cells % 0.0 Platelet Count 164 Potassium Level 4.4 Red Blood Count 3.46 L Red Cell Distribution Width 13.6 Sodium Level 144 White Blood Count 5.3 # Medications Medications Current Medications Sodium Chloride (NS) 1,000 ml @ 75 mls/hr [id number] IV Last administered on 07/12t 11:11; Admin Dose 75 MLS/HR; Start 07/11/16 at 18:21 Lorazepam (Ativan) 0.5 mg Q6H PRN IV ANXIETY; Start 07/11/16 at 18:30 Ondansetron HCl (Zofran Inj) 4 mg Q6H PRN IV NAUSEA AND/OR VOMITING; Start 07/11 at 18:30 Nitroglycerin (Nitroglycerin (Sl Tab) 0.4 Mg) 1 tab Q5M PRN SL CHEST PAIN; Start 07/11/16 at 18:30 Morphine Sulfate (morphine) 2 mg Q4H PRN IV PAIN LEVEL 7-10; Start 07/11/16 at 18:30 Hydralazine HCl (Apresoline) 10 mg Q6H PRN IV sbp > 160; Start 07/11/16 at 18:30 Rachid Castellon DO Jul 12, 2016 14:20
--- NOTE | 2016-07-12 15:49 | CONS ---
Date/Time of Note Date/Time of Note DATE: 07/12/16 TIME: 15:30 Assessment/Plan Assessment/Plan Chief Complaint/Hosp Course The patient is a 76-year-old lady with coronary artery disease with a pacemaker , with rectal adenocarcinoma, 5 cm from the anal verge, with CT A/P that showed irregular bowel wall thickening in the rectum with luminal narrowing. CEA 5.2 No active bleeding at this time per nursing. - If patient continues to have no active bleeding, ok to discharge and have patient seen at [facility] as patient is self pay and has no insurance. - I have ordered a CT chest for staging. - Patient would need a pelvis MRI for staging though would need CV approval given pacemaker. Alternatively transrectal US could be done at the [facility]. - Dr. Wesley of [facility] onc will evaluate the patient today - Iron panel and ferritin ordered - With the help of a dry kiln loader, I verified that the patient does not want to know her diagnosis and gives power to her daughter Ximena to make decisions including any necessary treatment to her daughter. Problems: Consultation Date/Type/Reason Admit Date/Time Jul 11, 2016 at 18:18 Hx of Present Illness The patient is a 76-year-old lady with coronary artery disease with a pacemaker , essential hypertension and a recently discovered rectal mass who was admitted to [facility] through the emergency room on 07/12/2016 for anemia. She has had three months of BRBPR initially with BM and now when she stands up, increasing in the last 3-4 days and with more clots. She feels like she has something "heavy in her bottom" and feels a numbness in her right leg when she is about to bleed. Her daughter states that she had been diagnosed in [place] three months ago with rectal cancer after she had a colonoscopy, but did not receive further care in [place] because they did not want to have a colostomy bag as proposed. She came here for care and had a known recent discovery of a larger than 6 cm circumferential mass lump, likely malignant in the rectum with distal margin approximately 5 cm from the anal verge that was discovered on colonoscopy on 07/02/2016 with pathology showing adenocarcinoma, moderately differentiated. She had a CT A/P that showed irregular bowel wall thickening in the rectum with luminal narrowing. The patient otherwise is active in her ADL's and able to dress/bathe herself, limited only by the rectal bleeding. She is able to eat and is currently tolerating a diet. No active bleeding per nurse. Psychological: nl mood/affect Past Medical History 1. History of coronary artery disease with bradycardia that required pacemaker placement done in [place] in 2013. 2. Hypertension. Medical History: coronary artery disease (s/p pacemaker), hypertension Past Surgical History Hysterectomy for vaginal prolapse Past Surgical Hx: other (Pacemaker, hysterectomy) Family History Significant Family History: no pertinent family hx Social History Alcohol Use: none Smoking Status: Never smoker Drug Use: none Exam/Review of Systems Vital Signs Vitals Vital Signs Date Time Temp Pulse Resp B/P Pulse Ox O2 Delivery O2 Flow Rate FiO2 07/12/16 07:31 98.0 63 16 140/64 99 07/11/16 18:42 Room Air 07/11/16 14:26 2.0 Intake and Output 07/11/16 07/11/16 07/12/16 15:00 23:00 07:00 Intake Total 1000 ml 535 ml Output Total 210 ml 400 ml Balance 790 ml 135 ml Exam Constitutional: alert, oriented Psych: no complaints Head: atraumatic, normocephalic Eyes: nl conjunctiva ENMT: nl external ears & nose Neck: non-tender, supple Respiratory: clear to auscultation Cardiovascular: regular rate and rhythm Gastrointestinal: non-tender, soft Musculoskeletal: nl extremities to inspection Results Result Diagram: 07/12/16 1345 07/12/16 0515 Results 24 hrs Laboratory Tests Test 07/11/16 19:10 07/12/16 00:55 07/12/16 05:15 07/12/16 13:45 Cholesterol Level 141 Cholesterol/HDL Ratio 4.7 Creatine Kinase 29 Creatine Kinase Index 1.6 Creatinine Kinase MB (Mass) 0.47 HDL Cholesterol 30 L Hematocrit 30.9 L 29.9 L 30.7 L 28.9 L Hemoglobin 10.3 L 9.7 L 9.9 L 9.6 L Hemoglobin A1c 6.3 H LDL Cholesterol, Calculated 83 Magnesium Level 1.9 Thyroid Stimulating Hormone (TSH) 3.560 Triglycerides Level 142 Troponin I < 0.012 Alpha Fetoprotein 2.79 Anion Gap 14 Basophils # 0.0 Basophils % 0.8 Blood Urea Nitrogen 15 CA 125 Antigen 6.2 CA 19-9 Antigen < 1.4 Calcium Level 8.6 Carbon Dioxide Level 25 Carcinoembryonic Antigen 5.2 H Chloride Level 109 Creatinine 0.96 Eosinophils # 0.3 Eosinophils % 5.3 Glucose Level 87 # Lymphocytes # 1.7 Lymphocytes % 31.6 Mean Corpuscular Hemoglobin 28.6 L Mean Corpuscular Hemoglobin Concent 32.2 Mean Corpuscular Volume 88.7 Mean Platelet Volume 10.2 Monocytes # 0.4 Monocytes % 8.1 Neutrophils # 2.9 Neutrophils % 54.0 Nucleated Red Blood Cells # 0.0 Nucleated Red Blood Cells % 0.0 Platelet Count 164 Potassium Level 4.4 Red Blood Count 3.46 L Red Cell Distribution Width 13.6 Sodium Level 144 White Blood Count 5.3 # Medications Medications Current Medications Sodium Chloride (NS) 1,000 ml @ 75 mls/hr [id number] IV Last administered on 07/12t 11:11; Admin Dose 75 MLS/HR; Start 07/11/16 at 18:21 Lorazepam (Ativan) 0.5 mg Q6H PRN IV ANXIETY; Start 07/11/16 at 18:30 Ondansetron HCl (Zofran Inj) 4 mg Q6H PRN IV NAUSEA AND/OR VOMITING; Start 07/11 at 18:30 Nitroglycerin (Nitroglycerin (Sl Tab) 0.4 Mg) 1 tab Q5M PRN SL CHEST PAIN; Start 07/11/16 at 18:30 Morphine Sulfate (morphine) 2 mg Q4H PRN IV PAIN LEVEL 7-10; Start 07/11/16 at 18:30 Hydralazine HCl (Apresoline) 10 mg Q6H PRN IV sbp > 160; Start 07/11/16 at 18:30 SHENA VEGA MD Jul 12, 2016 15:40
--- NOTE | 2016-07-12 17:31 | RADRPT ---
PROCEDURE: CT Chest. CLINICAL INDICATION: Rectal cancer. Staging. Shortness of breath. TECHNIQUE: CT scan of the chest without contrast was performed on the [place] volumetric [address] [facility] without contrast. Coronal and sagittal reformatted images were obtained from the axial source images. The CTDI vol is 6.72 mGy and the DLP is 241.42 mGy-cm. COMPARISON: None. FINDINGS: 8 mm subpleural nodule with calcification in the right lower lobe is seen which is seen on the prior CT abdomen pelvis from 07/11/2016. A 7 mm nodule is seen in the right upper lobe with calcification . A 2 mm calcified granuloma in the right lower lobe is once again seen which is seen on the prior CT abdomen pelvis. Minimal dependent changes in the lung bases is seen. No dense consolidation or p leural effusion is seen. The mediastinum and hilum are unremarkable without evidence for mass or lym phadenopathy. A dual lead pacemaker is seen. Aortic and coronary vascular calcifications are seen. T he vascular structures of the mediastinum are otherwise unremarkable in course and caliber. The hea rt size is normal without evidence for pericardial thickening or effusion. The axillary regions, sub pectoral regions, and supraclavicular regions are all unremarkable. A small hiatal hernia is seen. A right renal cyst is seen. Vicarious excretion of contrast in the gallbladder lumen is seen. Calcifications are seen in the left hepatic lobe and spleen. Imaging obtained through the upper abdo men reveals no acute abnormality. Diffuse osteopenia is noted. Degenerative spondylosis of the thor acic spine is seen. No osteolytic or osteoblastic lesion is detected. IMPRESSION: 1. Right upper and lower lobe sub centimeter nodule calcifications likely representing calcified gr anulomas. In addition, 2 mm calcified granuloma in the right lower lobe. 2. Otherwise, no acute pathology in the chest. 3. Small hiatal hernia. RPTAT: HPNM Physician Hillary Date Time Electronically viewed and signed by Brandan Pillai Physician on 07/12/2016 17:30 /
[2016-07-12 20:53] VITALS: BP 137/65; RESP 16
[2016-07-13] MEDS: SOD CHLORIDE 0.9% 1,000 ML IV SCH ×2 (02:58→10:05)
[2016-07-13 06:39] LABS: IRON 25 ug/dl (35-150)
[2016-07-13 06:48] LABS: TOTAL IRON BINDING CAPACITY 312 ug/dl (241-421)
[2016-07-13 07:29] VITALS: BP 164/72; RESP 20
[2016-07-13] MEDS ORDERED: FER325 PO (09:21)
--- NOTE | 2016-07-13 09:23 | PDOCDIS ---
Discharge Instructions DIAGNOSIS Discharge Diagnosis: Colon CA CONDITION Patient Condition: Stable HOME CARE INSTRUCTIONS: Special Diet: Regular Diet ACTIVITY: Activity Restrictions: Slowly Increase Activity Rest between Activity Avoid heavy lifting FOLLOW UP/APPOINTMENTS Appointments Patient needs to follow up with [facility] or [facility] secondary to her current insurance and appropriate resources. OTHER ORDERS: Other Orders: Colon CA - continue with further chemotherapy/hematology oncology as an outpatient RYLEY COELLO MD Jul 13, 2016 09:22
--- NOTE | 2016-07-13 10:32 | DS ---
DATE OF ADMISSION: 07/11/2016 DATE OF DISCHARGE: 07/13/2016 DISCHARGE DIAGNOSES: 1. Bright red blood per rectum, stable. 2. Colorectal carcinoma, adenocarcinoma moderately differentiated. 3. Acute renal failure, improved. 4. Anemia secondary to #1 and #2. 5. Coronary artery disease, status post pacemaker. 6. Essential hypertension. HOSPITAL COURSE: This is a 76-year-old female with a past medical history of CAD, status post pacem loc, essential hypertension who presents with bright red blood per rectum for the last 3 days, mini mal bleeding at all times, especially when she stands and had some dizziness and symptoms at this t luisa of shortness of breath. She saw Dr. Mirza on 07/01/2016 for colonoscopy and had a large, more than 6 cm semi-circumferential mass at that time. The pathology of that on the had shown adeno carcinoma, moderately differentiated. The patient initially came in and had a chest x-ray showing calcified atherosclerosis in the aorta, hyperexpanded clear lungs. She had an abdominal CT of the abdomen and pelvis showin. Irregular bowel wall thickening in the rectum with luminal narrowing which may be the pat ient's clinical history of colorectal cancer in correlation with recent colonoscopy. A biopsy may be of value if clinically warranted. 2. Stool filled large bowel. 3. Small hiatal hernia. 4. An 8 mm right lower lobe nodule which may represent a calcified granuloma and calcification in a ddition to a 2 mm calcified granuloma in the right lower lobe. A CT chest was done also showing 1. Right upper and lower lobe subcentimeter nodular calcification likely representing calcified gr anulomas. In addition, a 2 mm calcified granuloma in the right lower lobe. 2. Otherwise no acute pathology in the chest. 3. Small hiatal hernia. Initial laboratory findings had shown a WBC 6.9, H and H 11.7 and 36.6, platelets of 201. Current H and H 9.9 and 30.7, platelets 164. Chemistry: BUN was 20 and 1.04 with hemoglobin A1c of 6.3, mag nesium 1.9. TSH of 3.56. CEA was 5.2. CA 19-9 was less than 1.4. CA-125 was 6.2, AFP of 2.79. I araseli 25, TIBC of 312, percent saturation 8, ferritin 19.8. BUN 15, creatinine 0.96. Coags were wit hin normal limits. Otherwise, consultants on the case were cardiology, surgery, GI and hematology/oncology. Patient did have an echocardiogram secondary to having symptomatic chest pain showin. Normal left ventricular systolic function, normal left ventricular cavity size, normal left vent ricular wall thickness, ejection fraction visually estimated at 65%, stage I diastolic dysfunction. 2. Normal right ventricular systolic function, pacemaker, right heart. 3. Left atrium is normal in size. 4. The right atrium is normal in size. 5. No hemodynamically significant aortic stenosis by Doppler. 6. Mild aortic valve regurgitation. 7. Estimated peak PA systolic pressure of 40 mmHg. There is mild tricuspid regurgitation with semi -normal appearance and function of mitral valve with trace physiological regurgitation. 8. Normal pericardium with no significant pericardial effusion. Otherwise, the patient today denies any chest pain or shortness of breath, improved overall function ing, still having some mild bleeding per rectum but otherwise her hemoglobin has been. I spoke to h er about the care plan and spoke to daughter also about the care plan. No other acute events. DISPOSITION: Home. CONDITION Stable. DISCHARGE MEDICATIONS: Include: 1. Ferrous sulfate 325 p.o. daily. 2. Cardizem-CD 120 mg p.o. daily. 3. MiraLax 17 grams p.o. daily. FOLLOWUP: The patient will follow up with either [facility] or [facility] at this time for further evaluation and treatment secondary to insurance purposes for outpatient followup with hemat ology/oncology, GI, surgery as well as cardiology and primary care physician. Patient and consultants were made aware of this and agreed with the plan. COORDINATION OF DISCHARGE: Greater than 40 minutes. Dictated By: RYLEY LAMAS/MANOLO Conf#: [id number] DID#: [id number]
--- NOTE | 2016-07-13 10:45 | PN ---
Date/Time of Note Date/Time of Note DATE: 07/13/16 TIME: 10:45 Assessment/Plan VTE Prophylaxis VTE Prophylaxis Intervention: SCD's Lines/Catheters IV Catheter Type (from Nrsg): Peripheral IV Assessment/Plan Assessment/Plan Lightheadedness Preserved ejection fraction History of pacemaker Acute blood loss anemia Colorectal cancer with GI bleeding -Patient with improvement in symptoms without lightheadedness or dizziness today. Echocardiogram reviewed with preserved ejection fraction with no significant valvular abnormalities. Patient undergoing GI/surgery/oncology workup. Subjective 24 Hr Interval Summary Free Text/Dictation The patient with no chanmge Exam/Review of Systems Vital Signs Vitals Vital Signs Date Time Temp Pulse Resp B/P Pulse Ox O2 Delivery O2 Flow Rate FiO2 07/13/16 07:29 98.3 20 164/72 98 07/12/16 20:53 60 07/12/16 20:00 Room Air 07/11/16 14:26 2.0 Intake and Output 07/12/16 07/12/16 07/13/16 14:59 22:59 06:59 Intake Total 465 ml 1000 ml 1025 ml Output Total 200 ml Balance 465 ml 800 ml 1025 ml Results Result Diagram: 07/12/16 1345 07/12/16 0515 Results 24 hrs Laboratory Tests Test 07/12/16 13:45 07/13/16 05:00 Hematocrit 28.9 L Hemoglobin 9.6 L Ferritin 19.8 Iron Level 25 L Percent Iron Saturation 8 L Total Iron Binding Capacity 312 Medications Medications Current Medications Sodium Chloride (NS) 1,000 ml @ 75 mls/hr [id number] IV Last administered on 07/13t 02:58; Admin Dose 75 MLS/HR; Start 07/11/16 at 18:21 Lorazepam (Ativan) 0.5 mg Q6H PRN IV ANXIETY; Start 07/11/16 at 18:30 Ondansetron HCl (Zofran Inj) 4 mg Q6H PRN IV NAUSEA AND/OR VOMITING; Start 07/11 at 18:30 Nitroglycerin (Nitroglycerin (Sl Tab) 0.4 Mg) 1 tab Q5M PRN SL CHEST PAIN; Start 07/11/16 at 18:30 Morphine Sulfate (morphine) 2 mg Q4H PRN IV PAIN LEVEL 7-10; Start 07/11/16 at 18:30 Hydralazine HCl (Apresoline) 10 mg Q6H PRN IV sbp > 160; Start 07/11/16 at 18:30 YAMILETH GONZALEZ MD Jul 13, 2016 10:45
--- NOTE | 2016-07-14 09:02 | CONS ---
DATE OF ADMISSION: 07/11/2016 DATE OF CONSULTATION: 07/12/2016 PALLIATIVE CARE CONSULTATION HISTORY OF PRESENT ILLNESS: By history, this is a pleasant 76-year-old female who was brought into emergency room for bright red blood per rectum. She has history of colorectal cancer recently diagn osed 07/01/2016, and was admitted primarily for stabilization of her hemodynamic status workup in ite of the fact she has colorectal cancer. Workup for bleeding stabilized her and appropriately ref erred her back to her primary care physicians at [facility]. The patient's family we re at the bedside. I introduced myself and explained my speciality and to facilitate communication, but not to open up discussions insofar as palliation of care or level of care at this time, pending consultation services seeing and examining and rendering opinions prior to that. MEDICATIONS: Please refer to reconciliation sheet. ALLERGIES: NO KNOWN DRUG ALLERGIES. MAJOR MEDICAL PROBLEMS IN THE PAST: Apparently unremarkable, which is as per history of present ill ness. The patient is status post pacemaker placement and history of essential hypertension. SOCIAL HISTORY: Lives with her family. Nonsmoker, nondrinker. FAMILY HISTORY: Noncontributory. REVIEW OF SYSTEMS: Noncontributory except which is as per history of present illness. ASSESSMENT AND PLAN: I have reviewed laboratory tests. Discussion was done with the patient's daug hter at the bedside. I once again explained to them what my involvement will be during her hospital ization. At that time I was unaware of the fact that the patient's primary care doctors are at [facility]. Those arrangements for transfer are in the process for referral at the time the patient is discharged when she is more hemodynamically stable. Family members understand this a nd I will be available in the event the patient stays or if she returns to [facility]. Dictated By: TRACY RIZVI MD, LP/MANOLO Conf#: [id number] DID#: [id number]
--- NOTE | 2016-07-15 02:02 | CONS ---
DATE OF ADMISSION: 07/11/2016 DATE OF CONSULTATION: 07/12/2016 DIAGNOSIS: Adenocarcinoma of the rectum. HISTORY OF PRESENT ILLNESS: The patient is a 76-year-old female who initially complained of hematoc hezia nearly 4 months ago. This has progressed over time. In the week prior to admission, she admi tted to passing clots as well. She complains of constipation with thin stool but no nausea or vomit ing. Appetite is decreased and weight has diminished slightly. She has noticed urinary frequency a s well, but no dysuria, hematuria or incontinence and no vaginal bleeding or discharge. About 3 mon ths ago, she went to [place] where she apparently underwent an endoscopy that initially diagnosed her with colorectal carcinoma. Reportedly surgery with a colostomy was proposed but declined by the alfa griffith. She presented to the emergency department at [facility] about 2 weeks ago due to complaints of worsening rectal bleeding with associated dyspnea with exertion, dizziness and malaise. She was found to be anemic with an initial hemoglobin of 11.7, but upon hydration 9.7. danielle subsequently underwent a colonoscopy with Dr. Mirza, who on digital rectal examination appreciate d a mass 5 or 6 cm from the anal verge. Endoscopically, there was a large 8 cm circumferential mass noted starting 5 cm from the anal verge. The remainder of the colonic mucosa was unremarkable. Mo derate size internal hemorrhoids were also present. A CEA level was slightly elevated at 5.2. Biop sies of the rectal mass were consistent with a moderately differentiated adenocarcinoma. A CT of [facility] abdomen and pelvis on 07/11/2016 confirmed irregular wall thickening in the rectum with associated luminal narrowing. There was no evidence of pelvic adenopathy nor any adrenal or liver disease. A CT of the chest on 07/12/2016 identified subcentimeter calcified granulomas. PAST MEDICAL HISTORY: Coronary artery disease. History of bradycardia status post pacemaker placed in 2013. Recent history of acute renal failure. Anemia. Hypertension. PAST SURGICAL HISTORY: Hysterectomy for vaginal prolapse. ALLERGIES TO MEDICATIONS: None. MEDICATIONS: 1. Cardizem. 2. MiraLax. 4. Hydralazine. 5. Morphine p.r.n. 3. Nitroglycerin p.r.n. SOCIAL HISTORY: She is seen today with family. She is originally from [place]. FAMILY HISTORY: No family history of colon cancer. She denies tobacco or alcohol use. REVIEW OF SYSTEMS: GENERAL: Admits to fatigue. No fevers, chills or sweats. ENT: No otalgia, dysphagia, hoarseness. NEUROLOGIC: Dizziness. No headaches, double vision, blurred vision, seizure activity or extremity weakness. PULMONARY: No dyspnea with exertion. No cough, hemoptysis or wheezing. CARDIOVASCULAR: History of coronary artery disease. She has had intermittent chest discomfort. De nies palpitations or extremity swelling. GASTROINTESTINAL: As above. GENITOURINARY: No dysuria, hematuria or incontinence. ENDOCRINE: No history of diabetes or thyroid disease. SKIN: No history of lupus, scleroderma or shingles. MUSCULOSKELETAL: Denies back, hip, rib, or neck pain. PHYSICAL EXAMINATION: VITAL SIGNS: Normal. GENERAL: Well-developed female in no distress, resting comfortably in bed. HEENT: Normocephalic, atraumatic. Sclerae are anicteric. Nodes: No cervical, supraclavicular or groin adenopathy. RESPIRATORY: Lungs are clear. HEART: Systolic murmur is audible. No gallops. Regular rate and rhythm. ABDOMEN: Soft with mild lower abdominal tenderness. No rebound, guarding, rigidity, or palpable ma sses. EXTREMITIES: No edema. RECTAL: Not performed. 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 PLAN: The patient has been assessed by both surgery and medical oncology and neoadjuvant chemoradia tion has been recommended. One could consider the indication for neoadjuvant treatment primarily wo uld be to allow for future sphincter sparing. One could also consider an endorectal ultrasound for optimal preoperative staging. I explained to family that the combined modality approach involves or al Xeloda with daily radiotherapy to a dose of about 5000 cGy to the pelvis. Side effects were disc ussed. Questions were answered. This was a limited discussion of the potential for fatigue, skin r eaction, bone marrow suppression, pelvic insufficiency fractures, cramping, diarrhea, proctitis or r ectal bleeding, irritative voiding symptoms, vaginal dryness, fibrosis, and stenosis. Questions wer e answered. It is unclear whether the patient has insurance coverage and if not, her care may be transferred to [facility]. I do have a contract with [facility] unless the patient could be referred back for radiation therapy planning and delivery. Otherwise, if indeed she has insurance c overage, I would hope to submit for the appropriate authorization. The patient would then require C T simulation for planning purposes. Initiation of treatment would be coordinated only upon her obta ining the Xeloda pills. Thank you for allowing me to participate with her assessment and care. Dictated By: JUAN CARLOS MONREAL/MANOLO Conf#: [id number] DID#: [id number] CC: RYLEY COELLO MD; SHENA VEGA MD; LALA MIRZA; RAFIQ VERGARA MD;*EndCC*
== END 2016-07-13 12:00 | disposition home or self-care (01) | DRG 377 ==
LOC: E/R 10:16 → MS2 18:18
PROVIDERS: ADMIT Student in an Organized Health Care Education/Training Program; ATTEND Student in an Organized Health Care Education/Training Program
DX: K62.5 Hemorrhage of anus and rectum (principal); N17.0 Acute kidney failure with tubular necrosis; C20 Malignant neoplasm of rectum; D62 Acute posthemorrhagic anemia; I10 Essential (primary) hypertension; I25.10 Atherosclerotic heart disease of native coronary artery without angina pectoris; Z95.0 Presence of cardiac pacemaker; Z90.710 Acquired absence of both cervix and uterus
CPT/HCPCS: 36415; 71250; 74177; 80048; 80053; 80061; 82105; 82378; 82550; 82553; 82728; 83036; 83540; 83735; 84443; 84484; 85014; 85018; 85025; 85610; 85730; 86301; 86304; 86850; 86900; 86901; 93005; 93306; 96360; J7030; Q9967

== ENCOUNTER 2017-01-27 10:07 | Day surgery (SDC) | payer MEDICAID, OTHER ==
[2017-01-27] VITALS (8 sets, daily range): BP systolic 140–145; BP diastolic 48–67; PULSE 60–74; RESP 14–17; Ht 134.6 cm; Wt 48.6 kg
[~2017-01-27] VITALS: Ht 134.6 cm; Wt 48.6 kg
[~2017-01-27 10:07] MED LIST changes: +CEFAZOLIN 1 GM INJ ONE; +DILT120C77 PO; +FER325 PO; -MIRALAX; +POLY17PO6 PO; -[UNRECOGNIZED DRUG - OTHER]; -[UNRECOGNIZED DRUG - OTHER]
[2017-01-27] MEDS ORDERED: CEFAZOLIN 2 GM/50 ML (PMX) 50 ML IVPB ONE (12:00)
[2017-01-27] MEDS ORDERED: SOD CHLORIDE 0.9% 1,000 ML IV SCH (12:00)
[2017-01-27 13:01] LABS: BASOPHILS % 0.5 % (0.0-2.0); EOSINOPHILS # 0.1 10^3/ul (0.0-0.5); EOSINOPHILS % 2.6 % (0.0-7.0); HEMATOCRIT 33.4 % (37.0-47.0); LYMPHOCYTES # 0.8 10^3/ul (0.8-2.9); LYMPHOCYTES % 19.7 % (15.0-51.0); MEAN CORPUSCULAR HEMOGLOBIN 28.8 pg (29.0-33.0); MEAN CORPUSCULAR HGB CONC 32.9 g/dl (32.0-37.0); MEAN CORPUSCULAR VOLUME 87.4 fl (82.0-101.0); MEAN PLATELET VOLUME 10.1 fl (7.4-10.4); MONOCYTE # 0.4 10^3/ul (0.3-0.9); MONOCYTES % 8.4 % (0.0-11.0); NEUTROPHILS % 68.6 % (39.0-77.0); PLATELET COUNT 129 10^3/UL (140-415); RED BLOOD COUNT 3.82 10^6/ul (4.20-5.40); RED CELL DISTRIBUTION WIDTH 14.8 % (11.5-14.5); WHITE BLOOD COUNT 4.2 10^3/ul (4.8-10.8)
[2017-01-27 13:10] LABS: HOLD TRANSMISSIONS 1
--- NOTE | 2017-01-27 14:08 | HPN ---
Date/Time of Note Date/Time of Note DATE: 01/27/17 TIME: 14:07 Interval H&P Admission Note Pt. seen H&P reviewed: No system changes ARYAN RODRÍGUEZ MD Jan 27, 2017 14:08
[2017-01-27] MEDS ORDERED: LIDOCAINE 1% (MPF) 30 ML INJ ONE (14:19)
[2017-01-27] MEDS ORDERED: BUPIVACAINE 0.5% (SDV) 30 ML INJ ONE (14:19)
[2017-01-27] MEDS ORDERED: PROPOFOL 20 ML ONE (14:26)
[2017-01-27] MEDS ORDERED: FENTAnyl 50 MCG/ML VIAL ONE (14:26)
[2017-01-27] MEDS ORDERED: DEXAMETHASONE 4 MG/ML 1 ML INJ ONE (14:54)
[2017-01-27] MEDS ORDERED: LIDOCAINE 2% (SDV) 5 ML INJ ONE (14:54)
[2017-01-27] MEDS ORDERED: ONDANSETRON 4 MG INJ ONE (14:54)
--- NOTE | 2017-01-27 15:22 | OPR ---
Date/Time of Note Date/Time of Note DATE: 01/27/17 TIME: 15:14 Operative Report Procedure Date: Jan 27, 2017 Preoperative Diagnosis Rectal cancer status post neoadjuvant chemoradiation Postoperative Diagnosis Rectal cancer status post neoadjuvant chemoradiation Operation Performed 1. Exam under anesthesia 2. Rigid sigmoidoscopy Surgeon: ARYAN RODRÍGUEZ MD Anesthesia Type: general Anesthesiologist: LEEROY EASON Estimated Blood Loss: none Transfusion Required: no Specimen: none Grafts/Implants: none Complications: no Pt Condition Post Procedure: stable Disposition: PACU Indications Patient is a 77-year-old female with multiple comorbidities and a history of rectal cancer status post neoadjuvant chemo and radiation therapy. The patient had a recent PET scan which showed a good response to the neoadjuvant chemoradiation therapy. On clinical exam there were no palpable masses. The patient most likely has had a complete clinical response. She was scheduled for exam under anesthesia, rigid sigmoidoscopy, and possible rectal biopsy of any suspicious lesions. All risks and benefits of the procedure including, but not limited to: Wound infection, excessive bleeding, incontinence to feces and/ or stool, anal stricture, possible need for subsequent surgery etc. were explained to the patient and her daughter in full detail. They understood and wished to proceed with the procedure. Informed consent was obtained. Operative\Procedure Findings Questionable small area of fibrosis and possible tattoo at the 9:00 location lithotomy approximately 5 cm from anal verge. There were no palpable masses or masses identified on rigid sigmoidoscopy. However due to poor prep examination was limited to about 15 cm. Procedure Description Patient was brought to the operating room and placed supine on the operating table. Bilateral sequential compression devices were placed on both lower extremities. A dose of broad-spectrum perioperative intravenous antibiotics was given. After the induction of smooth general anesthesia the patient was placed in the lithotomy position using Leandro stirrups with all pressure points padded. The patient had not undergone a preoperative fleets enema as had requested to prep the anal rectal region. Therefore, prep and visualization was suboptimal. The patient's perineum and bilateral thighs were then prepped and draped in standard surgical fashion. After performance of the surgical amount digital rectal exam was performed. There were no palpable masses. There was no gross blood. Rigid sigmoidoscopy was then performed. Quality of the prep was poor and I could only get up to about 15 cm. However there were no masses identified. On withdrawal of the rigid proctosigmoidoscope at approximately the 9:00 position with the patient in lithotomy a very small area of fibrosis was identified with what appeared to be prior tattooing from colonoscopy. At this point the procedure was then terminated. The patient was then transferred to the recovery room in stable condition. All counts were correct at the end of the case 2 ARYAN RODRÍGUEZ MD Jan 27, 2017 15:22
[2017-01-27] MEDS ORDERED: FENTAnyl 50 MCG/ML VIAL IV PRN ×2 (15:30)
[2017-01-27] MEDS ORDERED: MEPERIDINE 25 MG INJ IV PRN (15:30)
[2017-01-27] MEDS ORDERED: DIPHENHYDRAMINE 50 MG INJ IV PRN (15:30)
[2017-01-27] MEDS ORDERED: OXYCODONE/ACETAMINOPHEN (5/325) TAB PO PRN (15:30)
[2017-01-27] MEDS ORDERED: KETOROLAC 30 MG INJ IV PRN (15:30)
[2017-01-27] MEDS ORDERED: LABETALOL HCL 20MG INJ IV PRN (15:30)
[2017-01-27] MEDS ORDERED: EPHEDrine SULFATE 50 MG/5 ML SYG IV PRN (15:30)
[2017-01-27] MEDS ORDERED: IBUPROFEN 600 MG TAB PO PRN (15:30)
[2017-01-27] MEDS ORDERED: ONDANSETRON 4 MG INJ IV PRN ×2 (15:30)
[2017-01-27] MEDS ORDERED: hydrALAzine 20 MG INJ IV PRN (15:30)
== END 2017-01-27 16:30 | disposition home or self-care (01) ==
LOC: SDS 10:07
PROVIDERS: ATTEND Surgery
DX: Z85.048 Personal history of other malignant neoplasm of rectum, rectosigmoid junction, and anus (principal); I10 Essential (primary) hypertension
CPT/HCPCS: 45330; 85025; J0690; J1100; J2405; J3010; Z7512; Z7610

== ENCOUNTER 2017-04-10 18:43 | Emergency (ER) | END 2017-04-10 22:25 | disposition home or self-care (01) | DX: E86.0 Dehydration (principal); R11.10 Vomiting, unspecified; R19.7 Diarrhea, unspecified; I10 Essential (primary) hypertension; Z85.038 Personal history of other malignant neoplasm of large intestine; Z95.0 Presence of cardiac pacemaker | CPT/HCPCS: 36415; 74176; 80053; 81003; 83605; 83690; 85025; 96374; 96375; J2270; J2405; J7030; Z7502 ==